=== PATIENT | female | born 1950 | race Caucasian/White ===

== ENCOUNTER 2021-06-13 16:30 | Inpatient (IN) | payer OTHER ==
[~2021-06-13] VITALS: Ht 167.6 cm; Wt 68.7 kg
[2021-06-13 16:38] VITALS: BP 189/106
[2021-06-13 19:51] LABS: BUN 14 mg/dl (7-24); CHLORIDE 94 mmol/L (98-107); CREATININE 0.73 mg/dL (0.55-1.02); POTASSIUM 3.4 mmol/L (3.5-5.1); SODIUM 125 mmol/L (136-145)
[2021-06-13 21:25] LABS: BASO % 0.4 % (0.0-1.0); EOS % 0.3 % (1.0-4.0); HEMATOCRIT 41.8 % (37.0-47.0); LYMPH # 1.6 10*3/uL (1.3-4.4); LYMPH % 15.2 % (27.0-41.0); MEAN CELL VOLUME 82.8 fl (81.0-99.0); MEAN CORPUSCULAR HGB 28.1 pg (27.0-31.0); MEAN PLATELET VOLUME 8.8 fl (9.6-12.3); MONO # 1.3 10*3/uL (0.1-1.0); MONO % 12.2 % (3.0-9.0); NEUT # 7.4 10*3/uL (2.3-7.9); NEUT % 71.2 % (47.0-73.0); PLATELET COUNT AUTOMATED 355 10*3/uL (130-400); RED BLOOD COUNT 5.05 10*6/uL (4.10-5.10); RED CELL DISTRI WIDTH 12.8 % (0-14.5); WHITE BLOOD COUNT 10.4 10*3/uL (4.8-10.8)
[2021-06-13 23:15] VITALS: BP 184/83
[2021-06-13] MEDS ORDERED: ATENOLOL100 M1 PO (23:18)
[2021-06-13] MEDS ORDERED: PRAVASTATIN SOD20 MG PO (23:18)
[2021-06-13] MEDS ORDERED: OZEMPIC0.25 MG/01 SQ (23:18)
[2021-06-13] MEDS ORDERED: RYBELSUS7 MG PO (23:18)
[2021-06-13] MEDS ORDERED: LOSARTAN POTAS100 M1 PO (23:19)
[2021-06-13] MEDS ORDERED: AMLODIPINE BESYL5 MG PO (23:19)
[2021-06-13] MEDS ORDERED: JANUVIA25 MG PO (23:19)
[2021-06-13 23:55] VITALS: BP 189/98
[2021-06-14] VITALS (7 sets, daily range): BP systolic 145–188; BP diastolic 70–91
[2021-06-14 00:43] LABS: BILIRUBIN Negative (Negative); BLOOD Negative (Negative); CLARITY Clear (Clear); COLOR Yellow (Yellow); GLUCOSE 2+ (Negative); KETONE Trace (Negative); LEUKO ESTERASE Negative (Negative); NITRITE Negative (Negative); PH 7.5 (4.5-8.0); UROBILINOGEN 0.2 E.U./dl (0.0-1.0)
[2021-06-14 01:48] LABS: WBC 0-2 wbc/hpf (0-5)
[2021-06-14 02:07] LABS: BUN 10 mg/dl (7-24); CHLORIDE 97 mmol/L (98-107); CREATININE 0.61 mg/dL (0.55-1.02); POTASSIUM 3.4 mmol/L (3.5-5.1); SODIUM 127 mmol/L (136-145)
[2021-06-14 06:50] LABS: BASO # 0.1 10*3/uL (0.0-0.1); BASO % 0.5 % (0.0-1.0); EOS # 0.1 10*3/uL (0.0-0.4); EOS % 1.3 % (1.0-4.0); HEMATOCRIT 41.8 % (37.0-47.0); LYMPH # 1.4 10*3/uL (1.3-4.4); LYMPH % 14.4 % (27.0-41.0); MEAN CELL VOLUME 81.2 fl (81.0-99.0); MEAN CORPUSCULAR HGB CONC 34.4 g/dl (33.0-37.0); MEAN PLATELET VOLUME 8.4 fl (9.6-12.3); MONO # 1.4 10*3/uL (0.1-1.0); MONO % 14.2 % (3.0-9.0); NEUT # 6.7 10*3/uL (2.3-7.9); NEUT % 69.1 % (47.0-73.0); PLATELET COUNT AUTOMATED 337 10*3/uL (130-400); RED BLOOD COUNT 5.15 10*6/uL (4.10-5.10); RED CELL DISTRI WIDTH 12.7 % (0-14.5); WHITE BLOOD COUNT 9.7 10*3/uL (4.8-10.8)
[2021-06-14 07:07] LABS: ALBUMIN 3.8 gm/dl (3.1-4.5); ALKALINE PHOSPHATASE 79 U/L (45-117); BUN 9 mg/dl (7-24); CHLORIDE 97 mmol/L (98-107); CREATININE 0.57 mg/dL (0.55-1.02); FREE T4 1.39 ng/dl (0.76-1.46); POTASSIUM 3.5 mmol/L (3.5-5.1); SGOT/AST 15 IU/L (3-35); SGPT/ALT 31 U/L (12-78); SODIUM 124 mmol/L (136-145); TOTAL PROTEIN 7.5 gm/dL (6.4-8.2)
[2021-06-14 07:13] LABS: CHOLESTEROL 149 mg/dL (<200); LDL CHOLESTEROL 73 mg/dL (9-159); TRIGLYCERIDES 65 mg/dl (<150)
[2021-06-14 07:43] LABS: VITAMIN D, 25-HYDROXY 76.5 ng/mL (30-100)
[2021-06-14] MEDS ORDERED: IRON325 M3 PO (11:53)
[2021-06-14] MEDS ORDERED: METFORMIN HYDR500 MG PO (11:53)
[2021-06-14 13:34] LABS: BUN 13 mg/dl (7-24); CHLORIDE 96 mmol/L (98-107); CREATININE 0.86 mg/dL (0.55-1.02); SODIUM 126 mmol/L (136-145)
[2021-06-15] VITALS: BP 179/82
[2021-06-15 06:40] LABS: BUN 10 mg/dl (7-24); CHLORIDE 94 mmol/L (98-107); CREATININE 0.76 mg/dL (0.55-1.02); POTASSIUM 3.5 mmol/L (3.5-5.1); SODIUM 126 mmol/L (136-145)
[2021-06-15 08:00] VITALS: BP 163/85
[2021-06-15 12:00] VITALS: BP 165/72
[2021-06-15 16:00] VITALS: BP 143/64
[2021-06-15 22:00] VITALS: BP 176/80
[2021-06-16 00:44] VITALS: BP 166/79
[2021-06-16 06:08] LABS: BUN 10 mg/dl (7-24); CHLORIDE 93 mmol/L (98-107); CREATININE 0.67 mg/dL (0.55-1.02); POTASSIUM 3.6 mmol/L (3.5-5.1); SODIUM 124 mmol/L (136-145)
[2021-06-16 13:00] VITALS: BP 152/79
== END 2021-06-16 14:30 | disposition home or self-care (01) | DRG 426 ==
LOC: ED 16:30 → 5E 21:21 → EDHOLD 21:21 → 5E 23:08
PROVIDERS: Emergency Medicine; Internal Medicine; Internal Medicine Nephrology; Social Worker Clinical; ADMIT Student in an Organized Health Care Education/Training Program; ATTEND Student in an Organized Health Care Education/Training Program
DX: E87.1 Hypo-osmolality and hyponatremia (principal); E87.6 Hypokalemia; D64.9 Anemia, unspecified; E44.0 Moderate protein-calorie malnutrition; N18.30 Chronic kidney disease, stage 3 unspecified; E87.8 Other disorders of electrolyte and fluid balance, not elsewhere classified; E13.65 Other specified diabetes mellitus with hyperglycemia; E13.22 Other specified diabetes mellitus with diabetic chronic kidney disease; I12.9 Hypertensive chronic kidney disease with stage 1 through stage 4 chronic kidney disease, or unspecified chronic kidney disease; E78.5 Hyperlipidemia, unspecified; Z95.0 Presence of cardiac pacemaker; Z90.710 Acquired absence of both cervix and uterus; Z87.891 Personal history of nicotine dependence; Z83.3 Family history of diabetes mellitus; Z82.49 Family history of ischemic heart disease and other diseases of the circulatory system; Z79.899 Other long term (current) drug therapy; Z84.89 Family history of other specified conditions; Z68.24 Body mass index [BMI] 24.0-24.9, adult

== ENCOUNTER → 2021-08-03 | Outpatient (CLI) | payer OTHER ==
[~2021-08-03] MED LIST: AMLODIPINE BESYL5 MG PO; ATENOLOL100 M1 PO; IRON325 M3 PO; JANUVIA25 MG PO; LOSARTAN POTAS100 M1 PO; METFORMIN HYDR500 MG PO; OZEMPIC0.25 MG/01 SQ; PRAVASTATIN SOD20 MG PO; RYBELSUS7 MG PO
[2021-08-03 07:51] LABS: HEMATOCRIT 44.5 % (37.0-47.0); MEAN CELL VOLUME 85.2 fl (81.0-99.0); MEAN CORPUSCULAR HGB 28.7 pg (27.0-31.0); MEAN CORPUSCULAR HGB CONC 33.7 g/dl (33.0-37.0); MEAN PLATELET VOLUME 8.9 fl (9.6-12.3); RED BLOOD COUNT 5.22 10*6/uL (4.10-5.10); RED CELL DISTRI WIDTH 12.6 % (0-14.5); WHITE BLOOD COUNT 7.8 10*3/uL (4.8-10.8)
[2021-08-03 08:06] LABS: ALBUMIN 3.9 gm/dl (3.1-4.5); ALKALINE PHOSPHATASE 96 U/L (45-117); BUN 16 mg/dl (7-24); CHLORIDE 95 mmol/L (98-107); CHOLESTEROL 161 mg/dL (<200); CREATININE 0.85 mg/dL (0.55-1.02); LDL CHOLESTEROL 82 mg/dL (9-159); POTASSIUM 3.5 mmol/L (3.5-5.1); SGOT/AST 11 IU/L (3-35); SGPT/ALT 26 U/L (12-78); SODIUM 132 mmol/L (136-145); TOTAL PROTEIN 7.7 gm/dL (6.4-8.2); TRIGLYCERIDES 105 mg/dl (<150)
[2021-08-03 09:33] LABS: VITAMIN D, 25-HYDROXY 70.1 ng/mL (30-100)
== END | disposition home or self-care (01) ==
LOC: LAB 07:30
PROVIDERS: ATTEND Family Medicine
DX: E11.9 Type 2 diabetes mellitus without complications (principal); I10 Essential (primary) hypertension; E78.00 Pure hypercholesterolemia, unspecified; R53.83 Other fatigue; H91.90 Unspecified hearing loss, unspecified ear

== ENCOUNTER → 2022-03-14 | Outpatient (CLI) | payer OTHER | END | disposition home or self-care (01) | LOC: RAD 08:30 | PROVIDERS: ATTEND Family Medicine | DX: R13.10 Dysphagia, unspecified (principal) ==

== ENCOUNTER → 2022-04-03 | Outpatient (CLI) | payer OTHER | END | disposition home or self-care (01) | LOC: RAD/SH 09:38 | PROVIDERS: ATTEND Family Medicine | DX: R13.10 Dysphagia, unspecified (principal) ==